=== PATIENT | male | born 1945 | race Caucasian/White ===

== ENCOUNTER → 2016-06-09 | Outpatient (CLI) | payer MEDICARE ==
[2016-06-09 08:56] LABS: Basophils # (A) 0.1 k/uL (0-0.2); Basophils % (A) 1 %; CH 30.5; CHCM 34.1; Eosinophils # (A) 0.1 k/uL (0-0.7); Eosinophils % (A) 1 %; HCT 47.8 % (39.0-53.0); HDW 2.78; Luc # (Auto) 0.09; Luc % (Auto) 2; Lymphocytes # (A) 1.8 k/uL (1.0-4.8); Lymphocytes % (A) 39 %; MCH 30.1 pg (25.0-35.0); MCHC 33.4 g/dL (31.0-37.0); Mean Platelet Volume 9.2; Monocytes # (A) 0.2 k/uL (0-1.0); Monocytes % (A) 5 %; Neutrophils # (A) 2.4 k/uL (1.3-7.7); Neutrophils % (A) 52 %; RBC 5.32 m/uL (4.30-5.90); RDW 13.2 % (11.5-15.5); WBC 4.6 k/uL (3.8-10.6); WBC (Perox) 4.43
[2016-06-09 09:54] LABS: ALT 31 U/L (21-72); AST 25 U/L (17-59); Alkaline Phosphatase 74 U/L (38-126); Anion Gap 12 mmol/L; Blood Urea Nitrogen 14 mg/dL (9-20); Calcium 9.5 mg/dL (8.4-10.2); Carbon Dioxide 28 mmol/L (22-30); Chloride 106 mmol/L (98-107); Cholesterol 159 mg/dL (<200); Glucose 90 mg/dL (74-99); HDL Cholesterol 54 mg/dL (40-60); Non-African American GFR(MDRD) >60 (>60 ml/min/1.73 sqM); Sodium 146 mmol/L (137-145); Total Bilirubin 0.9 mg/dL (0.2-1.3); Total Protein 7.2 g/dL (6.3-8.2); Triglycerides 81 mg/dL (<150)
[2016-06-09 10:23] LABS: Prostate Specific Antigen 1.37 ng/mL (0.00-4.00)
== END | disposition home or self-care (01) ==
LOC: LABWHC1 07:53
PROVIDERS: ATTEND Family Medicine
DX: I10 Essential (primary) hypertension (principal); I48.0 Paroxysmal atrial fibrillation; G47.00 Insomnia, unspecified
CPT/HCPCS: 36415; 80053; 80061; 84153; 84439; 84443; 85025

== ENCOUNTER → 2018-04-16 | Outpatient (CLI) | payer MEDICARE ==
[2018-04-16 17:21] LABS: Albumin 4.3 g/dL (3.80-4.90); Albumin/Globulin Ratio 2.05 (1.60-3.17); Calcium 9.4 mg/dL (8.7-10.3); Globulin 2.1 g/dL (1.6-3.3); LDL Cholesterol,Calculated 67.4 mg/dL (0.0-131.0); Potassium 4.3 mmol/L (3.5-5.5); Total Bilirubin 0.9 mg/dL (0.2-1.2); Total Protein 6.4 g/dL (6.2-8.2); VLDL Calculation 15.6 mg/dL (5.00-40.00)
== END | disposition home or self-care (01) ==
LOC: LABWHC1 08:41
PROVIDERS: ATTEND Internal Medicine Interventional Cardiology
DX: E78.2 Mixed hyperlipidemia (principal)
CPT/HCPCS: 36415; 80053; 80061

== ENCOUNTER → 2018-05-29 | Outpatient (CLI) | payer MEDICARE ==
[2018-05-29 10:15] LABS: Basophils % (A) 0 %; Eosinophils # (A) 0.1 k/uL (0-0.7); Eosinophils % (A) 2 %; HCT 51.2 % (39.0-53.0); HGB 16.6 gm/dL (13.0-17.5); Lymphocytes # (A) 1.6 k/uL (1.0-4.8); Lymphocytes % (A) 31 %; MCH 29.6 pg (25.0-35.0); MCHC 32.4 g/dL (31.0-37.0); MCV 91.3 fL (80.0-100.0); Mean Platelet Volume 8.7; Monocytes # (A) 0.3 k/uL (0-1.0); Monocytes % (A) 6 %; Neutrophils # (A) 3.2 k/uL (1.3-7.7); Neutrophils % (A) 60 %; Platelet Count 204 k/uL (150-450); RBC 5.61 m/uL (4.30-5.90); RDW 13.9 % (11.5-15.5); WBC 5.3 k/uL (3.8-10.6)
== END ==
LOC: LABWHC1 08:57
PROVIDERS: ATTEND Family Medicine
DX: Z00.00 Encounter for general adult medical examination without abnormal findings (principal); I10 Essential (primary) hypertension; Z79.899 Other long term (current) drug therapy; Z79.01 Long term (current) use of anticoagulants; Z12.5 Encounter for screening for malignant neoplasm of prostate
CPT/HCPCS: 85025; 36415; G0103

== ENCOUNTER → 2018-12-25 | Outpatient (CLI) | payer MEDICARE ==
--- NOTE | 2018-12-25 16:37 | MR ---
EXAMINATION TYPE: MR iac wo/w con DATE OF EXAM: 12/25/2018 COMPARISON: None HISTORY: Rt ear hearing loss TECHNIQUE: Multiplanar, multisequence images of the brain and brainstem with small [id number] and high resolu tion imaging through the internal auditory canals is performed without and with IV contrast, utilizin g 10 mL intravenous Gadavist . FINDINGS: Diffusion weighted images demonstrate no evidence of a recent infarct or other diffusion ab normality. There is no extra-axial fluid collection. Periventricular and pericallosal, subcortical hyperintensities are present within the white matter on inversion recovery T2-weighted sequences. Gre ater than 50 lesions are present. The ventricular system and cisternal spaces are normal in size and appearance. The brain volume is age appropriate, there is likely age-related atrophy. Midline structures demonstrate normal morphology. Cerebellopontine angles show no mass, is no abnorm al enhancement along the internal auditory canals The craniocervical junction appears within normal l imits. Post contrast images demonstrate no abnormal enhancement. The dural venous sinuses appear pat ent. The visualized sinuses are remarkable for inflammatory changes possibly mucus retention cyst or polyp within right maxillary sinus. Mucosal disease present within the left maxillary sinus, ethmoid air cells, the globes are intact. IMPRESSION: Age-related changes of atrophy and probable chronic small vessel ischemia.
== END | disposition home or self-care (01) ==
LOC: RADMRIMAIN 09:33
PROVIDERS: ATTEND Otolaryngology
DX: G31.1 Senile degeneration of brain, not elsewhere classified (principal)
CPT/HCPCS: 70553; A9585

== ENCOUNTER → 2019-11-04 | Outpatient (CLI) | payer MEDICARE ==
[2019-11-04 10:22] LABS: Basophils % (A) 1 %; Eosinophils # (A) 0.1 k/uL (0-0.7); Eosinophils % (A) 1 %; HCT 51.3 % (39.0-53.0); HGB 16.6 gm/dL (13.0-17.5); Lymphocytes # (A) 1.8 k/uL (1.0-4.8); Lymphocytes % (A) 33 %; MCH 29.9 pg (25.0-35.0); MCHC 32.4 g/dL (31.0-37.0); MCV 92.3 fL (80.0-100.0); Mean Platelet Volume 8.3; Monocytes # (A) 0.3 k/uL (0-1.0); Monocytes % (A) 6 %; Neutrophils # (A) 3.1 k/uL (1.3-7.7); Neutrophils % (A) 57 %; Platelet Count 186 k/uL (150-450); RBC 5.56 m/uL (4.30-5.90); RDW 13.3 % (11.5-15.5); WBC 5.5 k/uL (3.8-10.6)
[2019-11-04 18:33] LABS: African American GFR (CKD) 85.6 (60.0-200.0); Albumin 4.8 g/dL (3.80-4.90); Albumin/Globulin Ratio 1.92 (1.60-3.17); Anion Gap 6.4 mmol/L (4.00-12.00); Calcium 9.9 mg/dL (8.7-10.3); Carbon Dioxide 28.6 mmol/L (21.6-31.8); Chol/HDL Ratio 3.03; Globulin 2.5 g/dL (1.6-3.3); LDL Cholesterol,Calculated 126.2 mg/dL (0.0-131.0); Non-African American GFR(CKD) 73.8 (60.0-200.0); Potassium 4.3 mmol/L (3.5-5.5); Total Bilirubin 1.5 mg/dL (0.2-1.2); Total Protein 7.3 g/dL (6.2-8.2); VLDL Calculation 11.8 mg/dL (5.00-40.00)
[2019-11-04 18:42] LABS: PSA Annual Screen 1.8 ng/mL (0.0-4.0); T4, Free (Free Thyroxine) 1.1 ng/dL (0.80-1.80)
== END | disposition home or self-care (01) ==
LOC: LABWHC1 09:36
PROVIDERS: ATTEND Internal Medicine Interventional Cardiology
DX: Z00.00 Encounter for general adult medical examination without abnormal findings (principal); E78.2 Mixed hyperlipidemia; I48.0 Paroxysmal atrial fibrillation; I10 Essential (primary) hypertension; Z12.5 Encounter for screening for malignant neoplasm of prostate; Z79.01 Long term (current) use of anticoagulants; Z79.899 Other long term (current) drug therapy
CPT/HCPCS: 86803; 84439; 80061; 80053; 84443; 85025; 36415; G0103

== ENCOUNTER → 2020-04-09 | Outpatient (CLI) | payer MEDICARE ==
[2020-04-09 19:30] LABS: African American GFR (CKD) 85.6 (60.0-200.0); Albumin/Globulin Ratio 2.63 (1.60-3.17); Anion Gap 12.2 mmol/L (4.00-12.00); Calcium 9.6 mg/dL (8.7-10.3); Carbon Dioxide 26.8 mmol/L (21.6-31.8); Chol/HDL Ratio 2.39; Globulin 1.9 g/dL (1.6-3.3); Non-African American GFR(CKD) 73.8 (60.0-200.0); Potassium 3.8 mmol/L (3.5-5.5); Total Bilirubin 1.1 mg/dL (0.2-1.2); Total Protein 6.9 g/dL (6.2-8.2)
== END | disposition home or self-care (01) ==
LOC: LABWHC1 08:49
PROVIDERS: ATTEND Nurse Practitioner Adult Health
DX: E78.2 Mixed hyperlipidemia (principal); I48.11 Longstanding persistent atrial fibrillation
CPT/HCPCS: 36415; 80053; 80061

== ENCOUNTER → 2020-12-14 | Outpatient (CLI) | payer MEDICARE ==
[2020-12-14 16:45] LABS: Basophils # (A) 0.02 X 10*3/uL (0.00-0.10); Basophils % (A) 0.3 %; Eosinophils # (A) 0.06 X 10*3/uL (0.04-0.35); HGB 16.3 g/dL (13.0-17.0); Lymphocytes # (A) 2.18 X 10*3/uL (0.90-5.00); Lymphocytes % (A) 34.8 %; MCHC 33.3 g/dL (32.0-37.0); MCV 93.2 fL (80.0-97.0); Mean Platelet Volume 11.4 fL (9.5-12.2); Monocytes # (A) 0.45 X 10*3/uL (0.20-1.00); Monocytes % (A) 7.2 %; Neutrophils # (A) 3.54 X 10*3/uL (1.80-7.70); Neutrophils % (A) 56.5 %; Platelet Count 197 X 10*3/uL (140-440); RBC 5.26 X 10*6/uL (4.40-5.60); RDW 12.8 % (11.5-14.5); WBC 6.26 X 10*3/uL (4.50-10.00)
[2020-12-14 17:06] LABS: African American GFR (CKD) 94.5 (60.0-200.0); Albumin/Globulin Ratio 2.03 (1.60-3.17); Anion Gap 14.4 mmol/L (4.00-12.00); BUN/Creat Ratio 16.7 Ratio (12.00-20.00); Blood Urea Nitrogen 15.3 mg/dL (9.0-27.0); Carbon Dioxide 22.3 mmol/L (21.6-31.8); Chol/HDL Ratio 2.31 Ratio; Globulin 2.5 g/dL (1.6-3.3); HDL Cholesterol 72.3 mg/dL (40.00-60.00); LDL Cholesterol,Calculated 78.6 mg/dL (0.0-131.0); Non-African American GFR(CKD) 81.5 (60.0-200.0); PSA Annual Screen 2.7 ng/mL (0.000-4.000); Potassium 4.3 mmol/L (3.5-5.5); Total Protein 7.4 g/dL (6.2-8.2); Triglycerides 80.7 mg/dL (0.00-149.00); VLDL Calculation 16.14 mg/dL (5.00-40.00)
== END | disposition home or self-care (01) ==
LOC: LABWHC1 09:02
PROVIDERS: ATTEND Internal Medicine Interventional Cardiology
DX: Z00.00 Encounter for general adult medical examination without abnormal findings (principal); E78.2 Mixed hyperlipidemia
CPT/HCPCS: 80061; 80053; 84443; 85025; 36415; G0103

== ENCOUNTER → 2022-07-13 | Outpatient (CLI) | payer MEDICARE ==
[2022-07-13 15:58] LABS: Chol/HDL Ratio 2.17 Ratio; LDL Cholesterol,Calculated 54.6 mg/dL (0.0-131.0); VLDL Calculation 17.14 mg/dL (5.00-40.00)
[2022-07-13 16:04] LABS: ALT 22 U/L (10-49); AST 29 U/L (14-35); African American GFR (CKD) 80.5 (60.0-200.0); Albumin 4.4 g/dL (3.8-4.9); Albumin/Globulin Ratio 2.02 (1.60-3.17); Alkaline Phosphatase 68 U/L (41-126); BUN/Creat Ratio 11.44 Ratio (12.00-20.00); Blood Urea Nitrogen 11.9 mg/dL (9.0-27.0); Calcium 9.6 mg/dL (8.7-10.3); Carbon Dioxide 25.5 mmol/L (20.0-27.5); Chloride 108 mmol/L (96-109); Globulin 2.2 g/dL (1.6-3.3); Glucose 113 mg/dL (70-110); Non-African American GFR(CKD) 69.4 (60.0-200.0); Potassium 4.4 mmol/L (3.5-5.5); Sodium 144 mmol/L (135-145); Total Protein 6.6 g/dL (6.2-8.2)
== END | disposition home or self-care (01) ==
LOC: LABWHC1 08:28
PROVIDERS: ATTEND Internal Medicine Interventional Cardiology
DX: E78.2 Mixed hyperlipidemia (principal)
CPT/HCPCS: 36415; 80053; 80061

== ENCOUNTER 2023-01-11 08:08 | Day surgery (SDC) | payer MEDICARE ==
[~2023-01-11 08:08] MED LIST: ALPRAZolam 0.25 MG TAB PO PRN; ALPRAZolam 0.5 MG TAB PO PRN; ASPIRIN 325 MG TAB PO ONE; NITROGLYCERIN SL TABS 0.4 MG TAB SUBLINGUAL PRN
[2023-01-11 08:30] LABS: Glucose,Whole Blood 113 mg/dL (70-110)
[2023-01-11] MEDS: SODIUM CHLORIDE 0.9% 1,000 ML in EMPTY BAG 1 BAG IV SCH ×3 (08:31→20:53)
[2023-01-11 08:35] LABS: Basophils % (A) 0 %; Eosinophils # (A) 0.1 k/uL (0-0.7); Eosinophils % (A) 1 %; HCT 53.7 % (39.0-53.0); HGB 17.8 gm/dL (13.0-17.5); Lymphocytes # (A) 1.7 k/uL (1.0-4.8); Lymphocytes % (A) 28 %; MCH 31.5 pg (25.0-35.0); MCHC 33.1 g/dL (31.0-37.0); Monocytes # (A) 0.4 k/uL (0-1.0); Monocytes % (A) 6 %; Neutrophils # (A) 3.8 k/uL (1.3-7.7); Neutrophils % (A) 63 %; Platelet Count 174 k/uL (150-450); RBC 5.65 m/uL (4.30-5.90); RDW 13.8 % (11.5-15.5); WBC 6.1 k/uL (3.8-10.6)
[2023-01-11] MEDS ORDERED: fentaNYL (PF) 50 MCG/ML 2 ML AMP ONE (09:51)
[2023-01-11] MEDS ORDERED: VERAPAMIL 2.5 MG/ML 2 ML AMP ONE (09:51)
[2023-01-11] MEDS ORDERED: HEPARIN SODIUM 1,000 UN/ML (10ML VL) ONE (09:51)
[2023-01-11] MEDS ORDERED: fentaNYL (PF) 50 MCG/ML 2 ML AMP IVP ONE (10:04)
[2023-01-11] MEDS ORDERED: LIDOCAINE 2% (PF) 20 MG/ML 5 ML VIAL SQ ONE ×3 (10:07)
[2023-01-11] MEDS ORDERED: VERAPAMIL SYRINGE (5 MG/10 ML) INTRAARTER ONE (10:09)
[2023-01-11] MEDS: HEPARIN SODIUM 1,000 UN/ML (10ML VL) IVP ONE ×2 (10:28→10:37)
[2023-01-11 10:31] LABS: O2 Sat Blood Gas 69.9 %
[2023-01-11 10:33] LABS: O2 Sat Blood Gas 69.5 %
[2023-01-11] MEDS ORDERED: CLOPIDOGREL 75 MG TAB ONE (10:40)
[2023-01-11] MEDS ORDERED: CLOPIDOGREL 75 MG TAB PO ONE (10:45)
[2023-01-11] MEDS ORDERED: IOPAMIDOL-370 100ML BTL INJ ONE ×2 (10:54→11:21)
[2023-01-11] MEDS ORDERED: NITROGLYCERIN SL TABS 0.4 MG TAB SUBLINGUAL ONE ×2 (11:17→11:20)
[2023-01-11] MEDS ORDERED: IOPAMIDOL-300 100ML BTL INJ ONE (11:32)
[2023-01-11] MEDS ORDERED: IV FLUID CONTINUATION 1,000 ML IV ONE (11:33)
[2023-01-11] MEDS ORDERED: ATROPINE SULFATE 0.1 MG/ML 10ML SYRINGE IV PRN (11:38)
[2023-01-11] MEDS ORDERED: ZOLPIDEM 5 MG TAB PO PRN (11:38)
[2023-01-11] MEDS ORDERED: NITROGLYCERIN SL TABS 0.4 MG TAB SUBLINGUAL PRN (11:38)
[2023-01-11] MEDS ORDERED: RX INFO: IV CONTRAST WAS GIVEN 1 EACH MISC MISCELLANE PRN (11:38)
[2023-01-11] MEDS ORDERED: MAG HYDROX/AL HYDROX/SIMETH 30 ML CUP PO PRN (11:38)
[2023-01-11] MEDS ORDERED: SODIUM CHLORIDE 0.9% 1,000 ML in EMPTY BAG 1 BAG IV SCH (11:45)
--- NOTE | 2023-01-11 11:53 | P.CARDCATH ---
Date of Procedure: 01/11/23 Description of Procedure: Cardiac Catheterization: The patient is a 77-year-old male with a known history of persistent atrial fibrillation, hypertension and hyperlipidemia, prior history of nonischemic cardiomyopathy and CAD who presented with symptoms of progressive dyspnea and worsening ejection fraction. Recommendations were made regarding cardiac catheterization, the risks and the complications were discussed with the patient who is in full understanding and agreement. Procedure Description: Patient was brought to [facility] in fasting semi-sedated state after receiving Fentanyl and Benadryl achieiving moderate conscious sedated state. Using Xylocaine Anesthesia and modified Seldinger technique, a 6-Angolan sheath was introduced in the right radial artery . The venous catheter and the right basilic vein was exchanged the 6-Angolan sheath. Right heart catheterization was performed using a Ingalls-Ayleen catheter multiple samples and pressures were obtained, cardiac output by thermodilution was calculated. Subsequently, selective coronary angiography was performed using a 5-Angolan 3.5 bend Machelle catheter. Multiple views of the coronary artery including hemiaxial views were obtained. The 6-Angolan pigtail catheter was used to cross the aortic valve and LVEDP was calculated. PCI: After removing the catheters a 6-Angolan EBU 3.75 guiding catheter was introduced into system and after cannulating the left main, a 0.014 BMW J-wire was positioned in the distal LAD. Subsequently attempted to advance a Infinit eye IVUS was unsuccessful. The catheter was removed and a 2.5 x 12 mm NC Treck balloon was advanced and inflation at 10 annamaria was done, after removing the balloon attempt to advance the IVUS catheter was unsuccessful, after removing the catheter 3.0 x 12 mm NC Treck was advanced and inflation up to 20 annamaria to open up the lesion. Subsequently intravascular ultrasound imaging was performed. After removing the catheter 3.0 x 38 mm Xience jasbir point stent was deployed at 16 annamaria. Subsequently a 4.0 x 8 mm NC Treck was advanced and one inflation at 10 annamaria was done proximally, repeat intravascular ultrasound imaging was performed and subsequently a 3.5 x 12 mm NC Treck balloon was advanced and one inflation at 12 annamaria in the midsegment was done. After removing the wire images were obtained and revealed stable successful stenting. Following that, catheter and sheath were removed. Hemostasis was obtained with deployment of vascular band . There was no immediate complication. Patient was returned to room in stable condition. Of note, the patient received a total of 8000 units of intravenous heparin as well as intra-arterial verapamil. The venous sheath will be removed in the holding area. He received an oral loading dose of clopidogrel. He had EKG changes with the inflations with mild chest discomfort that improved. Findings: Fluoroscopy: There is severe calcifications involving the LAD and left circumflex territory Left main: This is a large-size vessel, bifurcating into LAD and left circumflex, left main has no obstructive disease. LAD: This is a large-size vessel, reaching to the apex, giving rise to 2 diagonal branch. At the takeoff of the first septal running rigger there is a 95% eccentric heavily calcified lesion. After the takeoff of the first diagonal branch there is a 70% plaque, the rest of the vessel has no high-grade stenosis Left circumflex: This is a nondominant vessel, large in caliber giving rise to a large obtuse marginal branch. The proximal left circumflex has a 40-50% plaque without any high-grade stenosis RCA: This is a dominant vessel, moderate in caliber. The mid right coronary artery has a 30-40% plaque. The PDA and the PLV have no high-grade stenosis. Left Ventriculogram: Not performed Hemodynamics: Pulmonary artery systolic pressure of 30 with a diastolic of 6 and a mean of 19 mmHg. Pulmonary capillary wedge pressure V-wave of 10 with a mean of 7 mmHg, right ventricular systolic pressure of 30 with end-diastolic of 6 mmHg, right atrium V-wave of 8 with a mean of 5 mmHg. Cardiac output by Gurinder 5 L/m and by thermodilution 5 L/m. Pulmonary artery saturation 70% right atrium 69%, arterial 97%. There was no gradient across the aortic valve. , LVEDP was 12-14 mmHg Conclusion: 1. Severely calcified coronary arteries 2. Severe stenosis in the proximal LAD 3. And mild to moderate disease in the RCA and left circumflex 4. No evidence of pulmonary hypertension 5. Successful stenting of the proximal LAD with reduction of stenosis from 95% to less than 5% with ultrasound imaging. There was slow flow in the septal running rigger. Recommendations: The patient will be continued on aspirin and Plavix and restart anticoagulation. Subsequently the aspirin be stopped and he will continue on Plavix and anticoagulation for at least 6 months. Aggressive coronary risks modifications as maintaining the LDL 70 mg/dL be continued.. The findings and the recommendations were discussed with the patient and the family and they were in full understanding and agreement. Duration of sedation is 81 minutes.
[2023-01-11] MEDS ORDERED: amLODIPine 5 MG TAB PO STA (12:32)
[2023-01-11] MEDS: SACUBITRIL/VALSARTAN 24 MG-26 MG TABLET PO SCH ×2 (13:07→20:46)
[2023-01-11] MEDS ORDERED: hydrALAZINE HCL 25 MG TAB PO STA (15:38)
[2023-01-11] MEDS: METOPROLOL TARTRATE 50 MG TAB PO SCH (18:12)
[2023-01-11] MEDS ORDERED: SACUBITRIL/VALSARTAN 24 MG-26 MG TABLET PO SCH (21:00)
[2023-01-11] MEDS ORDERED: ATORVASTATIN 40 MG TAB PO SCH (21:00)
[2023-01-12 04:45] LABS: African American GFR (CKD) >90 (>60 ml/min/1.73 sqM); Anion Gap 11 mmol/L; Blood Urea Nitrogen 11 mg/dL (9-20); Calcium 9.2 mg/dL (8.4-10.2); Carbon Dioxide 22 mmol/L (22-30); Chloride 106 mmol/L (98-107); Glucose 104 mg/dL (74-99); Non-African American GFR(CKD) >90 (>60 ml/min/1.73 sqM); Potassium 3.7 mmol/L (3.5-5.1); Sodium 139 mmol/L (137-145)
[2023-01-12] MEDS: SACUBITRIL/VALSARTAN 24 MG-26 MG TABLET PO SCH (07:55)
[2023-01-12] MEDS: METOPROLOL TARTRATE 50 MG TAB PO SCH (07:56)
--- NOTE | 2023-01-12 08:03 | P.PN ---
Subjective Progress Note Date: 01/12/23 PROGRESS NOTE The patient is a 77-year-old male with a known history of atrial fibrillation, cardiomyopathy who has been complaining of progressive dyspnea and had worsening in his ejection fraction. He underwent cardiac catheterization and was found to have severe obstructive disease in the proximal LAD. He underwent successful stenting of that vessel. He's feeling well this morning. His breathing is stable. He denies any chest discomfort, dizziness or palpitations. His blood pressure is elevated but it has been under good control at home. He is in atrial fibrillation with controlled ventricular response. Medications: Aspirin, Lipitor 40 mg daily, Plavix 75 mg daily, metoprolol 50 mg twice a day,Entresto 1 tablet twice a day PHYSICAL EXAMINATION: Blood pressure 160/100 heart rate 70 LUNGS: Clear to auscultation HEART: Irregular rate and rhythm, S1, S2. No S3. No systolic murmur ABDOMEN: Soft, nontender, no organomegaly EXTREMETIES: No edema, right radial pulse intact LAB: Potassium 3.7, BUN 11, creatinine 0.71 IMPRESSION: 1. Status post stenting of the LAD 2. Cardiomyopathy 3. History of hypertension 4. Chronic persistent atrial fibrillation PLAN: 1. Add hydralazine 25 mg daily 2. Increase physical activity 3. Discharged home today 4. And follow-up in one week Objective - Vital Signs Vital signs: Vital Signs Temp 97.6 F 01/12/23 02:00 Pulse 73 01/12/23 02:00 Resp 16 01/12/23 02:00 BP 168/103 01/12/23 02:00 Pulse Ox 96 01/12/23 02:00 FiO2 Intake & Output 01/11/23 01/12/23 01/12/23 18:59 06:59 18:59 Intake Total 1000 Output Total 1400 1050 Balance -400 -1050 Weight 102.2 kg Intake: IV 1000 Output: Urine 1400 1050 Other: Voiding Method Urinal - Labs CBC & Chem 7: 01/11/23 08:20 01/12/23 04:22 Labs: Abnormal Lab Results - Last 24 Hours (Table) 01/11/23 01/11/23 01/12/23 Range/Units 08:20 08:26 04:22 Hgb 17.8 H (13.0-17.5) gm/dL Hct 53.7 H (39.0-53.0) % Glucose 104 H (74-99) mg/dL POC Glucose (mg/dL) 113 H (70-110) mg/dL
[2023-01-12 08:26] VITALS: RESP 18; TEMP 97.8
[2023-01-12 08:54] VITALS: PULSE 76
[2023-01-12] MEDS ORDERED: hydrALAZINE HCL 25 MG TAB PO SCH (09:00)
[2023-01-12] MEDS ORDERED: CLOPIDOGREL 75 MG TAB PO SCH (09:00)
[2023-01-12] MEDS ORDERED: DAPAGLIFLOZIN PROPANEDIOL 10 MG TABLET PO SCH (09:00)
[2023-01-12] MEDS ORDERED: ASPIRIN 81 MG PO SCH (09:00)
[2023-01-12 10:11] VITALS: BP 164/84
== END 2023-01-12 10:40 | disposition home or self-care (01) ==
LOC: CATHCVL 08:08 → 6NMEDSUR 11:25 → CATHCVL 01-12 10:40
PROVIDERS: ATTEND Internal Medicine Interventional Cardiology
DX: I48.19 Other persistent atrial fibrillation (principal); I42.9 Cardiomyopathy, unspecified; I11.0 Hypertensive heart disease with heart failure; Z79.02 Long term (current) use of antithrombotics/antiplatelets; Z79.82 Long term (current) use of aspirin; Z79.899 Other long term (current) drug therapy; Z95.5 Presence of coronary angioplasty implant and graft
CPT/HCPCS: 92978; 93460; 80048; 85018; 82810; 85025; C9600; C1769 ×3; C1887; C1894; C1751; C1753; C1874; C1725 ×4; J3010; J1644; Q9967 ×2; J2001

== ENCOUNTER → 2023-03-16 | Outpatient (CLI) | payer MEDICARE ==
--- NOTE | 2023-03-16 12:57 | XR ---
EXAMINATION TYPE: XR lumbar spine 2 or 3V DATE OF EXAM: 03/16/2023 COMPARISON: None HISTORY: Pain into hips TECHNIQUE: 3 view lumbar spine FINDINGS: There are 5 lumbar-type vertebral bodies. Pedicles are intact. Degenerative disc changes ar e present L4-5 and L5-S1. Posterior disc space narrowing is present at L3-4 and to a mild degree L2-3 . Spondylosis is present. Vascular calcifications within the aorta. IMPRESSION: 1. Degenerative disc changes mid and lower lumbar spine
--- NOTE | 2023-03-16 13:04 | XR ---
EXAMINATION TYPE: XR thoracic spine 2V DATE OF EXAM: 03/16/2023 COMPARISON: None HISTORY: Pain in hips TECHNIQUE: 3 views thoracic spine FINDINGS: There are 12 thoracic type vertebral bodies. Pedicles are intact. Disc heights are preserve d. Vertebral body heights are preserved. Spondylosis is present. IMPRESSION: 1. No acute osseous abnormality thoracic spine
== END | disposition home or self-care (01) ==
LOC: RADXRMAIN 11:51
PROVIDERS: ATTEND Family Medicine
DX: M51.36 Other intervertebral disc degeneration, lumbar region (principal); M25.552 Pain in left hip; M25.551 Pain in right hip
CPT/HCPCS: 72070; 72100

== ENCOUNTER → 2023-04-12 | Outpatient (CLI) | payer MEDICARE ==
[2023-04-12 09:42] LABS: ALT 27 U/L (4-49); AST 31 U/L (17-59); African American GFR (CKD) >90 (>60 ml/min/1.73 sqM); Albumin 4.5 g/dL (3.5-5.0); Albumin/Globulin Ratio 1.6; Alkaline Phosphatase 105 U/L (38-126); Anion Gap 9 mmol/L; Blood Urea Nitrogen 20 mg/dL (9-20); Calcium 9.7 mg/dL (8.4-10.2); Carbon Dioxide 24 mmol/L (22-30); Chloride 108 mmol/L (98-107); Globulin 2.9 g/dL; Glucose 106 mg/dL (74-99); Non-African American GFR(CKD) 85 (>60 ml/min/1.73 sqM); Sodium 141 mmol/L (137-145); Total Protein 7.4 g/dL (6.3-8.2)
[2023-04-12 09:49] LABS: NT-Pro-B-Type Natriuretic Pept 930 pg/mL
[2023-04-12 16:09] LABS: Chol/HDL Ratio 1.88 Ratio; LDL Cholesterol,Calculated 58.4 mg/dL (0.0-131.0)
== END | disposition home or self-care (01) ==
LOC: LABWHC1 08:52
PROVIDERS: ATTEND Internal Medicine Interventional Cardiology
DX: I42.8 Other cardiomyopathies (principal); E78.2 Mixed hyperlipidemia
CPT/HCPCS: 36415; 80053; 80061; 83880

== ENCOUNTER → 2023-11-24 | Outpatient (CLI) | payer MEDICARE ==
[2023-11-24 20:13] LABS: ALT 36 U/L (10-49); AST 27 U/L (14-35); Albumin 4.4 g/dL (3.8-4.9); Alkaline Phosphatase 85 U/L (41-126); Blood Urea Nitrogen 19.8 mg/dL (9.0-27.0); Calcium 9.6 mg/dL (8.7-10.3); Carbon Dioxide 25.1 mmol/L (21.6-31.8); Chloride 108 mmol/L (96-109); Chol/HDL Ratio 2.21 Ratio; Globulin 2.1 g/dL (1.6-3.3); Glucose 101 mg/dL (70-110); LDL Cholesterol,Calculated 60.2 mg/dL (0.0-131.0); Potassium 4.7 mmol/L (3.5-5.5); Sodium 145 mmol/L (135-145); Total Protein 6.5 g/dL (6.2-8.2); VLDL Calculation 11.98 mg/dL (5.00-40.00)
[2023-11-24 20:56] LABS: NT-Pro-B-Type Natriuretic Pept 560 pg/mL (0-450)
== END | disposition home or self-care (01) ==
LOC: LABWHC1 10:22
PROVIDERS: ATTEND Nurse Practitioner Adult Health
DX: I11.0 Hypertensive heart disease with heart failure (principal); I50.22 Chronic systolic (congestive) heart failure; E78.2 Mixed hyperlipidemia
CPT/HCPCS: 36415; 80053; 80061; 83880

== ENCOUNTER 2023-11-27 13:10 | Day surgery (SDC) | payer MEDICARE ==
[2023-11-27] MEDS ORDERED: LIDOCAINE 1% (10MG/ML) FOR IV START INTRADERMA PRN (13:33)
[2023-11-27 13:42] VITALS: RESP 16; TEMP 97
[2023-11-27] MEDS: LACTATED RINGERS 1,000 ML IV SCH (13:49)
[2023-11-27] MEDS: IV FLUID CONTINUATION 1,000 ML IV ONE (13:50)
[2023-11-27] MEDS ORDERED: LIDOCAINE 1% INJ 10MG/ML (20 ML MDV) ONE (14:21)
[2023-11-27] MEDS ORDERED: PROPOFOL 10 MG/ML 20 ML VIAL IV ONE (14:21)
--- NOTE | 2023-11-27 14:27 | P.GSHP ---
History of Present Illness H&P Date: 11/27/23 Chief Complaint: GI bleed This is a 78-year-old male with history of GI bleed. Patient presents today for EGD and colonoscopy. Past Medical History Past Medical History: Atrial Fibrillation, Heart Failure, Hearing Disorder / Deafness, Hyperlipidemia, Hypertension, Osteoarthritis (OA), Pneumonia Additional Past Medical History / Comment(s): right ear hearing loss/[place]- no hearing aids; precancerous skin lesions. History of Any Multi-Drug Resistant Organisms: None Reported Past Surgical History: Heart Catheterization With Stent, Orthopedic Surgery Additional Past Surgical History / Comment(s): rt leg fx repair, cataract surg. Past Anesthesia/Blood Transfusion Reactions: No Reported Reaction Date of Last Stent Placement:: 01/11/23 Smoking Status: Former smoker Medications and Allergies Home Medications Medication Instructions Recorded Confirmed Type Dapagliflozin Propanediol [Farxiga] 10 mg PO DAILY 01/10/23 11/22/23 History Metoprolol Tartrate [Lopressor] 50 mg PO TID 01/10/23 11/22/23 History Clopidogrel [Plavix] 75 mg PO DAILY #90 tab 01/12/23 11/22/23 Rx Rivaroxaban [Xarelto] 20 mg PO DAILY #90 tab 01/12/23 11/22/23 Rx Atorvastatin [Lipitor] 40 mg PO DAILY 11/22/23 11/22/23 History Sacubitril/Valsartan [Entresto 97 1 each PO BID 11/22/23 11/22/23 History mg-103 mg Tablet] Allergies Allergy/AdvReac Type Severity Reaction Status Date / Time No Known Allergies Allergy Verified 11/27/23 13:33 Surgical - Exam Vital Signs Temp Pulse Resp BP Pulse Ox 97 F L 86 16 189/86 98 11/27/23 13:40 11/27/23 13:40 11/27/23 13:40 11/27/23 13:40 11/27/23 13:40 - General well developed, well nourished, no distress - Eyes PERRL - ENT normal pinna - Neck no masses - Respiratory normal expansion - Cardiovascular Rhythm: regular - Abdomen Abdomen: soft, non tender Assessment and Plan Assessment: History of GI bleed. Will perform EGD and colonoscopy.
--- NOTE | 2023-11-27 14:36 | P.OP ---
Date of Procedure: 11/27/23 Preoperative Diagnosis: GI bleed Postoperative Diagnosis: Gastritis Poor colon prep Procedure(s) Performed: EGD Anesthesia: MAC Surgeon: Danny Jones Pathology: other (Antrum) Condition: stable Disposition: PACU Description of Procedure: The patient was placed on the endoscopy table in the lateral position. He received IV sedation. The Gastroflux oropharynx passed in the esophagus and stomach. Scope was placed through the pylorus. The first and second portion of duodenum appeared normal. Scope was brought back to the antrum this appeared minimal Flaim. A biopsy was performed. Scope was retroflexed remainder the stomach appeared normal. The GE junction was at 40 cm. The distal esophagus appeared normal. The proximal esophagus appeared normal. The scope was then withdrawn from the patient. The patient was then rotated. Patient had a large amount of solid liquid brown stool. The patient's prep was inadequate for colonoscopy. The patient will be rescheduled for colonoscopy.
[2023-11-27 14:59] VITALS: BP 149/90; PULSE 83
== END 2023-11-27 15:29 | disposition home or self-care (01) ==
LOC: ORWHC2ENDO 13:10
PROVIDERS: ATTEND Surgery
DX: K92.2 Gastrointestinal hemorrhage, unspecified
CPT/HCPCS: 43239; 88305; 88341; 88342

== ENCOUNTER 2023-11-30 09:28 | Day surgery (SDC) | payer MEDICARE ==
[2023-11-30 10:58] VITALS: TEMP 97.2
[2023-11-30 11:15] LABS: Glucose,Whole Blood 103 mg/dL (70-110)
[2023-11-30] MEDS: IV FLUID CONTINUATION 1,000 ML IV ONE (11:15)
[2023-11-30] MEDS: LACTATED RINGERS 1,000 ML BAG IV STA (11:15)
[2023-11-30] MEDS ORDERED: PROPOFOL 10 MG/ML 20 ML VIAL IV ONE (11:25)
--- NOTE | 2023-11-30 11:28 | P.GSHP ---
History of Present Illness H&P Date: 11/30/23 Chief Complaint: GI bleed This is a 70-year-old male presents today for colonoscopy. Patient had issues with GI bleed. Past Medical History Past Medical History: Atrial Fibrillation, Heart Failure, Hearing Disorder / Deafness, Hyperlipidemia, Hypertension, Osteoarthritis (OA), Pneumonia Additional Past Medical History / Comment(s): right ear hearing loss/[place]- no hearing aids; precancerous skin lesions. History of Any Multi-Drug Resistant Organisms: None Reported Past Surgical History: Heart Catheterization With Stent, Orthopedic Surgery Additional Past Surgical History / Comment(s): rt leg fx repair, cataract surg. Past Anesthesia/Blood Transfusion Reactions: No Reported Reaction Date of Last Stent Placement:: 01/11/23 Smoking Status: Former smoker Medications and Allergies Home Medications Medication Instructions Recorded Confirmed Type Dapagliflozin Propanediol [Farxiga] 10 mg PO DAILY 01/10/23 11/30/23 History Metoprolol Tartrate [Lopressor] 50 mg PO TID 01/10/23 11/30/23 History Clopidogrel [Plavix] 75 mg PO DAILY #90 tab 01/12/23 11/30/23 Rx Rivaroxaban [Xarelto] 20 mg PO DAILY #90 tab 01/12/23 11/30/23 Rx Atorvastatin [Lipitor] 40 mg PO DAILY 11/22/23 11/30/23 History Sacubitril/Valsartan [Entresto 97 1 each PO BID 11/22/23 11/30/23 History mg-103 mg Tablet] Allergies Allergy/AdvReac Type Severity Reaction Status Date / Time No Known Allergies Allergy Verified 11/30/23 10:45 Surgical - Exam Vital Signs Temp Pulse Resp BP Pulse Ox 97.2 F L 64 18 150/82 97 11/30/23 10:55 11/30/23 10:55 11/30/23 10:55 11/30/23 10:55 11/30/23 10:55 - General well developed, well nourished, no distress - Eyes PERRL - ENT normal pinna - Neck no masses - Respiratory normal expansion - Cardiovascular Rhythm: regular - Abdomen Abdomen: soft, non tender Assessment and Plan Assessment: History of GI bleed. Will perform colonoscopy.
--- NOTE | 2023-11-30 11:51 | P.OP ---
Date of Procedure: 11/30/23 Preoperative Diagnosis: GI bleed Postoperative Diagnosis: Diverticulosis Procedure(s) Performed: Colonoscopy Anesthesia: MAC Surgeon: Danny Jones Pathology: none sent Condition: stable Disposition: PACU Description of Procedure: The patient was placed on the endoscopy table in the lateral position. He received IV sedation. Digital rectal exam was performed. This revealed no abnormality. A flex colonoscope was then placed patient anus passed throughout the entire colon. Patient had a poor colon prep. There is large amount liquid stool which limited the view of the right colon. There was significant diverticular disease of the right colon. In the transverse and descending colon there was extensive diverticular disease. The scope was backed sigmoid colon and more diverticuli were seen. Scope back to the rectum this appeared normal. Scope withdrawn for the patient. There was no activity active GI bleed. Presumed patient may have had bleeding from diverticulosis.
[2023-11-30 11:52] VITALS: RESP 16
[2023-11-30 12:06] VITALS: BP 137/78; PULSE 67
== END 2023-11-30 12:50 | disposition home or self-care (01) ==
LOC: ORWHC2ENDO 09:28
PROVIDERS: ATTEND Surgery
DX: K92.2 Gastrointestinal hemorrhage, unspecified
CPT/HCPCS: 45378

== ENCOUNTER → 2024-05-01 | Outpatient (CLI) | payer MEDICARE ==
[2024-05-01 15:21] LABS: ALT 20 U/L (10-49); AST 23 U/L (14-35); Albumin 4.6 g/dL (3.8-4.9); Albumin/Globulin Ratio 1.77 Ratio (1.60-3.17); Alkaline Phosphatase 79 U/L (41-126); Blood Urea Nitrogen 18.3 mg/dL (9.0-27.0); Calcium 9.6 mg/dL (8.7-10.3); Carbon Dioxide 27.7 mmol/L (21.6-31.8); Chloride 105 mmol/L (96-109); Chol/HDL Ratio 2.21 Ratio; Globulin 2.6 g/dL (1.6-3.3); Glucose 106 mg/dL (70-110); Potassium 4.4 mmol/L (3.5-5.5); Sodium 143 mmol/L (135-145); Total Bilirubin 1.2 mg/dL (0.3-1.2); Total Protein 7.2 g/dL (6.2-8.2); VLDL Calculation 12.78 mg/dL (5.00-40.00)
[2024-05-01 15:46] LABS: NT-Pro-B-Type Natriuretic Pept 548 pg/mL (0-450)
== END | disposition home or self-care (01) ==
LOC: LABWHC1 09:17
PROVIDERS: ATTEND Internal Medicine Interventional Cardiology
DX: E78.2 Mixed hyperlipidemia (principal)
CPT/HCPCS: 36415; 80053; 80061; 83880

== ENCOUNTER → 2024-05-24 | Outpatient (CLI) | payer MEDICARE ==
[2024-05-24 15:10] LABS: Basophils # (A) 0.02 X 10*3/uL (0.00-0.10); Basophils % (A) 0.3 %; Eosinophils # (A) 0.04 X 10*3/uL (0.04-0.35); Eosinophils % (A) 0.5 %; HCT 53.9 % (39.6-50.0); HGB 17.4 g/dL (13.0-17.0); Lymphocytes % (A) 23.9 %; MCH 31.1 pg (27.0-32.0); MCHC 32.3 g/dL (32.0-37.0); MCV 96.4 FL (80.0-97.0); Mean Platelet Volume 10.7 FL (9.5-12.2); Monocytes # (A) 0.63 X 10*3/uL (0.20-1.00); Monocytes % (A) 8.4 %; NRBC Per 100 WBC 0 X 10*3/uL (0.00-0.01); Neutrophils % (A) 66.5 %; Platelet Count 187 X 10*3/uL (140-440); RBC 5.59 X 10*6/uL (4.40-5.60); RDW 12.3 % (11.5-14.5); WBC 7.52 X 10*3/uL (4.50-10.00)
[2024-05-24 16:19] LABS: ALT 25 U/L (10-49); AST 28 U/L (14-35); Albumin 4.2 g/dL (3.8-4.9); Albumin/Globulin Ratio 1.68 Ratio (1.60-3.17); Alkaline Phosphatase 79 U/L (41-126); BUN/Creat Ratio 25.18 Ratio (12.00-20.00); Blood Urea Nitrogen 27.7 mg/dL (9.0-27.0); Calcium 9.7 mg/dL (8.7-10.3); Chloride 107 mmol/L (96-109); Chol/HDL Ratio 2.62 Ratio; Globulin 2.5 g/dL (1.6-3.3); Glucose 130 mg/dL (70-110); LDL Cholesterol,Calculated 72.9 mg/dL (0.0-131.0); Prostate Specific Antigen 3.08 ng/mL (0.000-6.500); Sodium 147 mmol/L (135-145); Total Protein 6.7 g/dL (6.2-8.2)
== END | disposition home or self-care (01) ==
LOC: LABWHC1 09:03
PROVIDERS: ATTEND Internal Medicine Interventional Cardiology
DX: Z00.00 Encounter for general adult medical examination without abnormal findings (principal); Z12.5 Encounter for screening for malignant neoplasm of prostate; I10 Essential (primary) hypertension; I48.0 Paroxysmal atrial fibrillation; I25.10 Atherosclerotic heart disease of native coronary artery without angina pectoris; I42.8 Other cardiomyopathies; N40.1 Benign prostatic hyperplasia with lower urinary tract symptoms; E78.2 Mixed hyperlipidemia; R39.16 Straining to void; Z87.891 Personal history of nicotine dependence; Z79.01 Long term (current) use of anticoagulants
CPT/HCPCS: 36415; 80053; 80061; 84153; 84443; 85025

== ENCOUNTER → 2024-07-23 | Outpatient (CLI) | payer MEDICARE ==
--- NOTE | 2024-07-23 12:27 | XR ---
EXAMINATION TYPE: XR shoulder complete RT DATE OF EXAM: 07/23/2024 CLINICAL INDICATION: Male, 78 years old with history of M25.511 PAIN IN RIGHT SHOULDER, pain TECHNIQUE: Three views of the right shoulder are obtained. COMPARISON: None. FINDINGS: Demineralization is present. There is no acute fracture/dislocation evident in the right s houlder. Mild to moderate narrowing of the acromioclavicular joint and glenohumeral joint is present. Old healed fractures of the right lateral fifth and sixth ribs is present. IMPRESSION: As above. [facility], , 07/23/2024 12:25 PM
== END | disposition home or self-care (01) ==
LOC: RADXRMAIN 11:53
PROVIDERS: ATTEND Family Medicine
DX: M25.811 Other specified joint disorders, right shoulder (principal)

== ENCOUNTER → 2024-08-22 | Outpatient (CLI) | payer MEDICARE ==
--- NOTE | 2024-08-22 11:24 | XR ---
EXAMINATION TYPE: XR Hip Complete RT DATE OF EXAM: 08/22/2024 11:11 AM COMPARISON: 08/22/2024. CLINICAL INDICATION: Male, 78 years old with history of M25.511 PAIN IN RIGHT SHOULDER M25.551 PAIN I N RIG; PHH, pain TECHNIQUE: XR Hip Complete RT; Frontal and lateral views FINDINGS: No evidence for acute process, joint dislocation or significant soft tissue swelling. Osteo phyte formation of the superior acetabulum of the hip. There is mild joint space narrowing. IMPRESSION: 1. No evidence for acute process. 2. Mild to moderate hip osteoarthrosis. [facility], , 08/22/2024 11:21 AM
--- NOTE | 2024-08-22 11:25 | XR ---
EXAMINATION TYPE: XR cervical spine comp DATE OF EXAM: 08/22/2024 11:11 AM COMPARISON: None CLINICAL INDICATION: Male, 78 years old with history of M25.511 PAIN IN RIGHT SHOULDER M25.551 PAIN I N RIG; PHH, pain TECHNIQUE: The cervical spine was imaged in frontal, lateral, odontoid and bilateral oblique. FINDINGS: The osseous structures show normal alignment without evidence of an acute fracture. No significant ve rtebral body osteophytes or facet joint arthropathy. Osteophytes worse at C3 C4 C5 and C6 anteriorly. The intervertebral disk spaces are preserved. Pedicles are intact. Soft tissues are within normal l imits. The odontoid appears intact. Atherosclerosis of the carotid bifurcations. IMPRESSION: 1. No fracture or dislocation. 2. Moderate to severe degenerative disc disease changes of the cervical spine. [facility], , 08/22/2024 11:22 AM
== END | disposition home or self-care (01) ==
LOC: RADXRMAIN 10:27
PROVIDERS: ATTEND Family Medicine
DX: M50.30 Other cervical disc degeneration, unspecified cervical region (principal); M25.511 Pain in right shoulder; M16.11 Unilateral primary osteoarthritis, right hip
CPT/HCPCS: 72050; 73502